=== PATIENT | female | born 1945 | race Caucasian/White ===

== ENCOUNTER 2025-08-12 10:05 | Emergency (ER) | payer MEDICARE ==
[2025-08-12 10:34] LABS: Glucose, Urine (Dipstick) Negative (Negative); Leukocyte Small (Negative); Protein, Urine (Dipstick) 30 mg/dL (Neg-Trace); Specific Gravity, Urine 1.020 (1.005-1.030)
[2025-08-12 10:42] LABS: Bacteria/HPF 2+ HPF (None Seen); CAUTI Indications for Culture Dysuria,urgency,freq; Mucous/LPF 1+ LPF (<2+); RBC/HPF 0-3 HPF (0-3)
[2025-08-12 10:44] LABS: Urine Culture Reflex No No
== END 2025-08-12 10:54 | disposition home or self-care (01) ==
LOC: BURERS 10:05
DX: N39.0 Urinary tract infection, site not specified (principal); I10 Essential (primary) hypertension; I48.91 Unspecified atrial fibrillation; Z79.82 Long term (current) use of aspirin; Z79.899 Other long term (current) drug therapy
CPT/HCPCS: 81001; 99284; Q0162